=== PATIENT | female | born 1955 | race Caucasian/White ===

== ENCOUNTER 2017-02-14 12:45 | Emergency (ER) | payer MEDICARE ==
[~2017-02-14 12:45] MED LIST: ADVIL MIGRAI200 MG PO; ALEVE220 MG PO; ANTIBIOTIC CREAM; ASAB PO; ATEN25 PO; ATEN50 PO; ATV.5 PO; ATV1 PO; BACDS PO; CARASPUDL PO; DIABETA5 PO; DSS PO; FERROUS SULF325 M1 PO; FLEX PO; FLUCON1 PO; GLUCOPHAGE1000 MG PO; GLUCPH PO; GLUCPH8 PO; HALF81 PO; INSNOV7030 SC; INSNOVR SC; KLOR-CON M2020 MEQ PO; L40 PO; L80 PO; LANTUS SC; LEVEMIR SC; LIPITOR20 PO; LISINOPRIL40 MG PO; LORT7 PO; METOPROLOL; MIRAPEX1 MG PO; NEUR300 PO; NEUR800 PO; NIZORALCRM TOP; NORCO1 TA2 PO; NOVOLOG SC; PLAVIX PO; POT GLUCONAT550 M1 PO; POTASSIUM PO; PRIN10 PO; PROAIR HFA INH; PROMETH/COD1 ML OR; PROTONIX PO; PT CANNOT RECALL MED; REQUIP1 PO; REQUIP2 PO; REQUIP4 MG PO; SPIRIVA INH; STOOL SOFTEN100 MG PO; SYMBICORT 160/41 INH INH; SYMLINPEN 601000 MCG SC; TOPXL50 PO; TRAZ50 PO; TUDORZA PRESS400 MCG INH; TYLENOL ARTH650 MG PO; Tudorza Pressair INH; VICTOZA IJ; XANAX1 MG PO; Z-PAK PO; ZANAFLEX 4 MG TA4 MG PO; ZOCOR10 PO; ZOL100 PO
== END 2017-02-14 13:34 | disposition home or self-care (01) ==
LOC: ER 12:45
DX: M25.511 Pain in right shoulder (principal); I10 Essential (primary) hypertension; I25.2 Old myocardial infarction; E11.9 Type 2 diabetes mellitus without complications; Z98.61 Coronary angioplasty status; Z88.1 Allergy status to other antibiotic agents; Z79.82 Long term (current) use of aspirin; Z79.899 Other long term (current) drug therapy; W19.XXXA Unspecified fall, initial encounter
CPT/HCPCS: 73030-RT; 96372; 99284; J1170